=== PATIENT | female | born 1975 | race Two or more races ===

== ENCOUNTER 2023-10-26 15:53 | Emergency (ER) | payer SELFPAY ==
[~2023-10-26] VITALS: Ht 165.1 cm; Wt 68.2 kg
[2023-10-26 16:18] VITALS: BP 177/123; PULSE 60; RESP 18; O2SAT 98
[2023-10-26] MEDS ORDERED: IOHEXOL 350 MG/ML 100ML IJ ONE (16:30)
[2023-10-26 16:36] LABS: Basophils # (auto) 0.1 10 ^3/uL (0-0.2); Basophils % (auto) 1.2 % (0.0-2.0); Eosinophils # (auto) 0.3 10 ^3/uL (0-0.8); Eosinophils % (auto) 3.7 % (0.0-7.0); Hematocrit 38.1 % (36.0-46.0); Hemoglobin 12.5 g/dL (12.2-16.2); Lymphocytes # (auto) 2.5 10 ^3/uL (0.4-5.4); Lymphocytes % (auto) 30.4 % (10.0-50.0); Mean Corpuscular Hemoglobin 28.1 pg (28.0-32.0); Mean Corpuscular Hgb Conc. 32.8 g/dL (32.0-36.0); Mean Corpuscular Volume 85.5 fL (80.0-100.0); Monocytes # (auto) 0.5 10 ^3/uL (0-1.3); Monocytes % (auto) 5.6 % (0.0-12.0); Neutrophils # (auto) 4.9 10 ^3/uL (1.6-8.6); Neutrophils % (auto) 59.1 % (37.0-80.0); Nucleated Red Blood Cells % 0.1 %; Red Blood Cells 4.46 10^6/uL (4.0-5.20); Red Cell Distribution Width 16.1 % (11.8-14.3); White Blood Cell 8.3 10^3/uL (4.4-10.8)
[2023-10-26 16:53] LABS: Alanine Aminotransferase 10 U/L (7-40); Albumin 4.1 g/dL (3.2-4.8); Alkaline Phosphatase 80 U/L (46-116); Anion Gap 5 (5-15); Aspartate Aminotransferase 14 U/L (13-40); BUN/Creatinine Ratio 9.2 (10.0-20.0); Bilirubin, Total 0.4 mg/dL (0.2-1.0); Blood Urea Nitrogen 7 mg/dL (9-23); Calcium 9.3 mg/dL (8.5-10.1); Carbon Dioxide 28 mmol/L (20-30); Chloride 106 mmol/L (98-107); Glucose 87 mg/dL (74-106); Potassium 4.1 mmol/L (3.5-5.1); Sodium 139 mmol/L (136-145); Total Protein 6.5 g/dL (5.7-8.2)
[2023-10-26 17:19] LABS: INR 1.01 (0.9-1.15); Partial Thromboplastin Time 34.1 SEC (24.5-34.5); Prothrombin Time 10.6 sec (9.3-11.8)
[2023-10-26] MEDS ORDERED: cloNIDine HCL 0.1 MG TAB PO ONE (17:30)
== END 2023-10-26 19:30 | disposition left against medical advice (07) ==
LOC: ER 15:53 → EDBD 15:53 → ER 19:30
DX: R07.89 Other chest pain (principal); R51.9 Headache, unspecified; H53.8 Other visual disturbances; I10 Essential (primary) hypertension; Z53.21 Procedure and treatment not carried out due to patient leaving prior to being seen by health care provider
CPT/HCPCS: 36415; 70450; 70496; 71046; 80053; 84484; 85025; 85610; 85730; 93005; 99281; Q9967